=== PATIENT | female | born 1985 | race Caucasian/White ===

== ENCOUNTER 2018-06-15 22:47 | Emergency (ER) | payer SELFPAY ==
[2016-06-02 13:15] VITALS: BP 128/72
[~2018-06-15] VITALS: Ht 170.2 cm; Wt 90.7 kg
[~2018-06-15 22:47] MED LIST: ACET-704 PO; ONDA4TAB10 SL
[2018-06-15] MEDS: HYDROcodone/APAP 7.5/325MG 1 TAB TABLET PO ONE (23:24)
[2018-06-15] MEDS: IBUPROFEN 400 MG TABLET. PO ONE (23:24)
[2018-06-16] MEDS ORDERED: HYDR-971 PO (00:11)
[2018-06-16] MEDS ORDERED: IBUP-1060 PO (00:11)
--- NOTE | 2018-06-16 03:27 | PHYS DOC ---
Past Medical History Past Medical History: No Pertinent History Past Surgical History: , Other Additional Past Surgical Histo: OVARIAN CYST REMOVED X2 Alcohol Use: None Drug Use: None Adult General Chief Complaint Chief Complaint: MECHANICAL FALL HPI HPI Patient is a 33 year old female who presents with fall. Patient states she fell 2 days earlier. She describes a mechanical fall. She landed on the left elbow and left shoulder. She's been having pain since then. The pain is worse at night and does keep her up at night. She did not strike her head. No vision changes, nausea, vomiting. No additional trauma or complaints this evening. Review of Systems Review of Systems Constitutional: Denies fever or chills Respiratory: Denies cough or shortness of breath Cardiovascular: No additional information not addressed in HPI Musculoskeletal: Denies back pain Integument: Denies rash or skin lesions Neurologic: Denies headache, focal weakness All other systems were reviewed and found to be within normal limits, except as documented in this note. Current Medications Current Medications Current Medications Medications (Trade) Dose Ordered Sig/Lina Start Time Stop Time Status Last Admin Dose Admin Acetaminophen/ Hydrocodone Bitart (Lortab 7.5/325) 1 tab 1X ONCE 06/15/18 23:30 06/15/18 23:31 DC 06/15/18 23:24 1 TAB Ibuprofen (Motrin) 800 mg 1X ONCE 06/15/18 23:30 06/15/18 23:31 DC 06/15/18 23:24 800 MG Allergies Allergies Allergies Coded Allergies Type Severity Reaction Last Updated Verified amoxicillin Allergy Intermediate 01/23/15 No Physical Exam Physical Exam Constitutional: Well developed, well nourished, no acute distress, non-toxic appearance HENT: Normocephalic, atraumatic, bilateral external ears normal, oropharynx moist Eyes: PERRLA, EOMI, conjunctiva normal Neck: Normal range of motion Cardiovascular:Heart rate regular rhythm, no murmur Lungs & Thorax: Bilateral breath sounds clear to auscultation Skin: Warm, dry, no erythema, no rash Extremities: No tenderness Neurologic: Alert and oriented X 3 Psychologic: Affect normal Current Patient Data Vital Signs Vital Signs Date Time Temp Pulse Resp B/P (MAP) Pulse Ox O2 Delivery O2 Flow Rate FiO2 06/15/18 23:03 98.2 103 18 167/109 (128) 99 Room Air 98.2 EKG EKG [] Radiology/Procedures Radiology/Procedures Plain film x-ray of the left elbow and shoulder did not reveal acute bony injury. Course & Med Decision Making Course & Med Decision Making Pertinent Labs and Imaging studies reviewed. (See chart for details) Patient is seen primarily for pain control. She fell 2 days earlier. She complains of pain in the left elbow and left shoulder. She has full range of motion about the elbow without difficulty. Pain in left shoulder is mildly limited due to pain only. She is x-rayed and no acute findings are found. She is discharged home with some medications for pain control. Advised to follow-up with her primary care doctor. Dragon Disclaimer Dragon Disclaimer This electronic medical record was generated, in whole or in part, using a voice recognition dictation system. Departure Departure Impression: Primary Impression: Contusion, shoulder /upper arm Additional Impression: Contusion, elbow Disposition: HOME, SELF-CARE Condition: GOOD Patient Instructions: Contusion, [id number] Scripts Hydrocodone/Apap 5-325 (NORCO 5-325 TABLET) 1 Each Tablet 1-2 EACH PO PRN Q6HRS PRN for severe pain, #15 as needed for pain Prov: NEO WHEELER DO 06/16/18 Ibuprofen (IBUPROFEN) 800 Mg Tablet 800 MG PO PRN TID PRN for PAIN, #20 TAB take with food or milk to avoid upsetting stomach Prov: NEO WHEELER DO 06/16/18 Problem Qualifiers NEO WHEELER DO Jun 16, 2018 03:27
--- NOTE | 2018-06-16 05:29 | RAD ---
3 view left elbow AP lateral oblique HISTORY: Pain status post fall The visualized osseous structures appear normal. IMPRESSION: No acute findings End impression Three views left shoulder History: pain Internally and externally rotated AP of shoulder obtained, as well as "Y" view. The glenohumeral relationship is normal. The visualized osseous structures appear normal. Impression: No acute findings. end impression Electronically signed by: Lowell Alicia III, MD (06/16/2018 5:26 AM) [facility]
== END 2018-06-16 00:17 | disposition home or self-care (01) ==
LOC: ER 22:47
DX: S50.02XA Contusion of left elbow, initial encounter (principal); S40.012A Contusion of left shoulder, initial encounter; S40.022A Contusion of left upper arm, initial encounter; Z98.890 Other specified postprocedural states; W18.39XA Other fall on same level, initial encounter; Y93.89 Activity, other specified; Y92.89 Other specified places as the place of occurrence of the external cause; Y99.8 Other external cause status
CPT/HCPCS: 73030; 73080; 99284

== ENCOUNTER 2018-11-19 03:48 | Emergency (ER) | payer SELFPAY ==
[~2018-11-19] VITALS: Ht 167.6 cm; Wt 83.9 kg
[~2018-11-19 03:48] MED LIST changes: +HYDR-3164 PO; +IBUP-1060 PO
[2018-11-19 04:36] LABS: BILIRUBIN,URINE NEGATIVE (NEG); CLARITY,URINE CLOUDY; COLOR,URINE YELLOW; NITRITE,URINE POSITIVE (NEG); PH,URINE 7.5; PROTEIN,URINE NEGATIVE (NEG-TRACE); UROBILINOGEN,URINE 0.2 mg/dL (0.2 mg/dL)
[2018-11-19 04:42] LABS: BASO % 1 % (0-3); EOS # 0.7 x10^3/uL (0.0-0.7); EOS % 9 % (0-3); HEMATOCRIT 40.6 % (36.0-47.0); HEMOGLOBIN 13.7 g/dL (12.0-15.5); LYMPH % 25 % (24-48); MEAN CORPUSCULAR HEMOGLOBIN 30 pg (25-35); MEAN CORPUSCULAR HGB CONC 34 g/dL (31-37); MEAN CORPUSCULAR VOLUME 89 fL (79-100); MONO # 0.6 x10^3/uL (0.0-1.1); MONO % 8 % (0-9); NEUT # 4.6 x10^3uL (1.8-7.7); NEUT % 58 % (31-73); PLATELET COUNT 276 x10^3/uL (140-400); RED BLOOD COUNT 4.59 x10^6/uL (3.50-5.40); RED CELL DISTRIBUTION WIDTH 15.1 % (11.5-14.5); WHITE BLOOD COUNT 8.1 x10^3/uL (4.0-11.0)
[2018-11-19 04:46] LABS: CALCIUM 8.7 mg/dL (8.5-10.1); CREATININE 0.7 mg/dL (0.6-1.0); GFR 95.8; POTASSIUM 3.8 mmol/L (3.5-5.1)
[2018-11-19 04:48] LABS: RBC,URINE 0 /HPF (0-2)
[2018-11-19 04:49] LABS: BACTERIA,URINE MANY /HPF (0-FEW); SQUAMOUS EPITHELIAL CELL,UR MANY /LPF
[2018-11-19 04:52] LABS: ALBUMIN 3.3 g/dL (3.4-5.0); ALBUMIN/GLOBULIN RATIO 0.8 (1.0-1.7); TOTAL BILIRUBIN 0.3 mg/dL (0.2-1.0); TOTAL PROTEIN 7.7 g/dL (6.4-8.2)
--- NOTE | 2018-11-19 05:14 | RAD ---
PORTABLE CHEST 1V Clinical History: dyspnea Technique: AP view of the chest was obtained at 11/19/2018 4:14 AM. Comparison: None. Findings: The cardiomediastinal silhouette is normal. The pulmonary vasculature is normal. The lungs and pleural margins are clear. Impression: No evidence of an acute cardiopulmonary process. Electronically signed by: Lowell Alicia III, MD (11/19/2018 5:11 AM) [facility]
[2018-11-19] MEDS ORDERED: FURO-69 PO (05:34)
--- NOTE | 2018-11-19 05:35 | PHYS DOC ---
Past Medical History Past Medical History: No Pertinent History Past Surgical History: , Other Additional Past Surgical Histo: OVARIAN CYST REMOVED X2 Alcohol Use: None Drug Use: None Adult General Chief Complaint Chief Complaint: LOWER EXTREMITY EDEMA HPI HPI Patient is a 33-year-old female who presents with complaint of lower extremity swelling as well as some cough and shortness of breath. Patient states that symptoms have been present for the last few weeks and progressively worsening. Patient states that she is concerned about the swelling. She denies any chest pain. She states that she was thinking that the swelling in her legs was developing because of being on her feet a lot but is not sure. Review of Systems Review of Systems Constitutional: Denies fever or chills [] Respiratory: Complains of cough and shortness of breath [] Cardiovascular: No additional information not addressed in HPI [] GI: Denies abdominal pain, nausea, vomiting, bloody stools or diarrhea [] Musculoskeletal: Complains of lower extremity swelling and pain [] All other systems were reviewed and found to be within normal limits, except as documented in this note. Allergies Allergies Allergies Coded Allergies Type Severity Reaction Last Updated Verified amoxicillin Allergy Intermediate 01/23/15 No Physical Exam Physical Exam Constitutional: Well developed, well nourished, no acute distress, non-toxic appearance. [] HENT: Normocephalic, atraumatic, bilateral external ears normal, oropharynx moist, no oral exudates, nose normal. [] Eyes: PERRLA, EOMI, conjunctiva normal, no discharge. [] Neck: Normal range of motion, no tenderness, supple, no stridor. [] Cardiovascular:Heart rate regular rhythm, no murmur [] Lungs & Thorax: Bilateral breath sounds clear to auscultation [] Abdomen: Bowel sounds normal, soft, no tenderness, no masses, no pulsatile masses. [] Skin: Warm, dry, no erythema, no rash. [] Extremities: No tenderness, no cyanosis, no clubbing, ROM intact, with mild pitting edema. [] Neurologic: Alert and oriented X 3, no focal deficits noted. [] Current Patient Data Vital Signs Vital Signs Date Time Temp Pulse Resp B/P (MAP) Pulse Ox O2 Delivery O2 Flow Rate FiO2 11/19/18 05:57 103 153/97 (115) Room Air 11/19/18 05:27 98 11/19/18 03:50 98.3 17 98.3 Lab Values Laboratory Tests Test 11/19/18 04:05 11/19/18 04:07 11/19/18 04:15 Urine Collection Type Unknown Urine Color Yellow Urine Clarity Cloudy Urine pH 7.5 Urine Specific [place] 1.020 Urine Protein Negative mg/dL (NEG-TRACE) Urine Glucose (UA) Negative mg/dL (NEG) Urine Ketones (Stick) Negative mg/dL (NEG) Urine Blood Negative (NEG) Urine Nitrite Positive (NEG) Urine Bilirubin Negative (NEG) Urine Urobilinogen Dipstick 0.2 mg/dL (0.2 mg/dL) Urine Leukocyte Esterase Moderate (NEG) Urine RBC 0 /HPF (0-2) Urine WBC 11-20 /HPF (0-4) Urine Squamous Epithelial Cells Many /LPF Urine Bacteria Many /HPF (0-FEW) Urine Mucus Mod /LPF POC Urine HCG, Qualitative Hcg negative (Negative) White Blood Count 8.1 x10^3/uL (4.0-11.0) Red Blood Count 4.59 x10^6/uL (3.50-5.40) Hemoglobin 13.7 g/dL (12.0-15.5) Hematocrit 40.6 % (36.0-47.0) Mean Corpuscular Volume 89 fL (79-100) Mean Corpuscular Hemoglobin 30 pg (25-35) Mean Corpuscular Hemoglobin Concent 34 g/dL (31-37) Red Cell Distribution Width 15.1 % (11.5-14.5) H Platelet Count 276 x10^3/uL (140-400) Neutrophils (%) (Auto) 58 % (31-73) Lymphocytes (%) (Auto) 25 % (24-48) Monocytes (%) (Auto) 8 % (0-9) Eosinophils (%) (Auto) 9 % (0-3) H Basophils (%) (Auto) 1 % (0-3) Neutrophils # (Auto) 4.6 x10^3uL (1.8-7.7) Lymphocytes # (Auto) 2.0 x10^3/uL (1.0-4.8) Monocytes # (Auto) 0.6 x10^3/uL (0.0-1.1) Eosinophils # (Auto) 0.7 x10^3/uL (0.0-0.7) Basophils # (Auto) 0.0 x10^3/uL (0.0-0.2) D-Dimer (Trish) 0.37 ug/mlFEU (0.00-0.50) Sodium Level 140 mmol/L (136-145) Potassium Level 3.8 mmol/L (3.5-5.1) Chloride Level 104 mmol/L (98-107) Carbon Dioxide Level 26 mmol/L (21-32) Anion Gap 10 (6-14) Blood Urea Nitrogen 13 mg/dL (7-20) Creatinine 0.7 mg/dL (0.6-1.0) Estimated GFR (Cockcroft-Gault) 95.8 BUN/Creatinine Ratio 19 (6-20) Glucose Level 99 mg/dL (70-99) Calcium Level 8.7 mg/dL (8.5-10.1) Total Bilirubin 0.3 mg/dL (0.2-1.0) Aspartate Amino Transferase (AST) 14 U/L (15-37) L Alanine Aminotransferase (ALT) 15 U/L (14-59) Alkaline Phosphatase 117 U/L (46-116) H Troponin I Quantitative < 0.017 ng/mL (0.000-0.055) FV-Vqs-D-Type Natriuretic Peptide 41 pg/mL (0-124) Total Protein 7.7 g/dL (6.4-8.2) Albumin 3.3 g/dL (3.4-5.0) L Albumin/Globulin Ratio 0.8 (1.0-1.7) L Laboratory Tests 11/19/18 04:15 Laboratory Tests 11/19/18 04:15 EKG EKG [] Radiology/Procedures Radiology/Procedures [] Impressions: PORTABLE CHEST 1V Clinical History: dyspnea Technique: AP view of the chest was obtained at 11/19/2018 4:14 AM. Comparison: None. Findings: The cardiomediastinal silhouette is normal. The pulmonary vasculature is normal. The lungs and pleural margins are clear. Impression: No evidence of an acute cardiopulmonary process. Electronically signed by: Lowell Alicia III, MD (11/19/2018 5:11 AM) [facility] Course & Med Decision Making Course & Med Decision Making Pertinent Labs and Imaging studies reviewed. (See chart for details) [] Dragon Disclaimer Dragon Disclaimer This electronic medical record was generated, in whole or in part, using a voice recognition dictation system. Departure Departure Impression: Primary Impression: Lower leg edema Additional Impressions: Elevated blood pressure reading without diagnosis of hypertension UTI (urinary tract infection) Disposition: 01 HOME, SELF-CARE Condition: STABLE Referrals: NO PCP (PCP) Patient Instructions: Edema, Hypertension Additional Instructions: Establish care with a primary care provider in the next week. Scripts Sulfamethoxazole/Trimethoprim (BACTRIM DS TABLET) 1 Each Tablet 1 TAB PO BID, #14 TAB Prov: LLOYD LARKIN Jr. DO 11/19/18 Furosemide (LASIX) 20 Mg Tablet 1 TAB PO DAILY, #10 TAB Prov: LLOYD LARKIN Jr. DO 11/19/18 Problem Qualifiers Additional Impressions: UTI (urinary tract infection) Urinary tract infection type: site unspecified Hematuria presence: without hematuria Qualified Codes: N39.0 - Urinary tract infection, site not specified LLOYD LARKIN Jr. DO Nov 19, 2018 05:35
[2018-11-19] MEDS ORDERED: SULF1TAB24 PO (05:55)
[2018-11-19 05:57] VITALS: BP 153/97
--- NOTE | 2018-11-19 11:06 | EKG ---
[facility] [address] [place] [address] Test Date: 2018-11-19 Test Time: 04:39:40 Pat Name: HEATHER STUART Department: Room: Gender: [employer]: : 1985 Requested By: Order Number: [id number] Reading MD: Jb Camara MD Measurements Intervals [place] Rate: 95 P: 44 [place]: 164 QRS: 78 QRSD: 86 T: 35 QT: 344 QTc: 435 Interpretive Statements SINUS RHYTHM Electronically Signed On 11-22-2018 15:14:08 CDT by Jb Camara MD
== END 2018-11-19 06:20 | disposition home or self-care (01) ==
LOC: ER 03:48
DX: N39.0 Urinary tract infection, site not specified (principal); R60.0 Localized edema; R03.0 Elevated blood-pressure reading, without diagnosis of hypertension; M79.89 Other specified soft tissue disorders; Z98.890 Other specified postprocedural states; Z88.1 Allergy status to other antibiotic agents
CPT/HCPCS: 36415; 71045; 80053; 81001; 81025; 83880; 84484; 85025; 85379; 87086; 87186; 93005; 99284-25

== ENCOUNTER 2019-06-02 17:05 | Emergency (ER) | payer SELFPAY ==
[~2019-06-02] VITALS: Ht 167.6 cm; Wt 102.1 kg
[~2019-06-02 17:05] MED LIST changes: +FURO-69 PO; +SULF1TAB24 PO
[2019-06-02 17:26] VITALS: BP 154/81
[2019-06-02 17:45] LABS: BILIRUBIN,URINE NEGATIVE (NEG); CLARITY,URINE CLOUDY; COLOR,URINE YELLOW; NITRITE,URINE POSITIVE (NEG); PH,URINE 5.5; PROTEIN,URINE 100 mg/dL (NEG-TRACE); UROBILINOGEN,URINE 0.2 mg/dL (0.2 mg/dL)
[2019-06-02 17:52] LABS: BACTERIA,URINE MANY /HPF (0-FEW); RBC,URINE 0 /HPF (0-2); SQUAMOUS EPITHELIAL CELL,UR MANY /LPF
[2019-06-02] MEDS ORDERED: KETOROLAC 30 MG/ML VIAL. IM STA (18:04)
--- NOTE | 2019-06-02 18:07 | PHYS DOC ---
Past Medical History Past Medical History: No Pertinent History (JAISON RODRIGUEZ APRN) Past Surgical History: , Other Additional Past Surgical Histo: OVARIAN CYST REMOVED X2 (JAISON RODRIGUEZ APRN) Alcohol Use: None Drug Use: None (JAISON RODRIGUEZ APRN) Attending Signature I have participated in the care of this patient and I have reviewed and agree with all pertinent clinical information above including history, exam, and recommendations. (KATH RANGEL MD) Adult General Chief Complaint Chief Complaint: ABDOMINAL PAIN HPI HPI Patient is a 34 year old female that presents to the ER for pelvic pain is on going for several hours. She rates her pain as 10 out of 10 in severity and states the pain is intermittent in nature. The patient however is not taking medicine before arrival. (JAISON RODRIGUEZ APRN) Review of Systems Review of Systems Constitutional: Denies fever or chills [] Eyes: Denies change in visual acuity, redness, or eye pain [] HENT: Denies nasal congestion or sore throat [] Respiratory: Denies cough or shortness of breath [] Cardiovascular: No additional information not addressed in HPI [] GI: Reports lower abdominal pain, Denies nausea, vomiting, bloody stools or diarrhea [] : Denies dysuria or hematuria [] Musculoskeletal: Denies back pain or joint pain [] Integument: Denies rash or skin lesions [] Neurologic: Denies headache, focal weakness or sensory changes [] Endocrine: Denies polyuria or polydipsia [] Complete systems were reviewed and found to be within normal limits, except as documented in this note. (JAISON RODRIGUEZ APRN) Current Medications Current Medications Current Medications Medications (Trade) Dose Ordered Sig/Lina Start Time Stop Time Status Last Admin Dose Admin Ketorolac Tromethamine (Toradol 30mg Vial) 30 mg 1X STAT 06/02/19 18:04 06/02/19 18:09 DC 06/02/19 18:29 30 MG (KATH RANGEL MD) Allergies Allergies Allergies Coded Allergies Type Severity Reaction Last Updated Verified amoxicillin Allergy Intermediate 01/23/15 No (KATH RANGEL MD) Physical Exam Physical Exam Constitutional: Well developed, well nourished, no acute distress, non-toxic appearance. [] HENT: Normocephalic, atraumatic, bilateral external ears normal, oropharynx moist, no oral exudates, nose normal. [] Eyes: PERRLA, EOMI, conjunctiva normal, no discharge. [] Neck: Normal range of motion, no tenderness, supple, no stridor. [] Cardiovascular:Heart rate regular rhythm, no murmur [] Lungs & Thorax: Bilateral breath sounds clear to auscultation [] Abdomen: Bowel sounds normal, soft, lower abdominal tenderness, no masses, no pulsatile masses. [] Skin: Warm, dry, no erythema, no rash. [] Back: No tenderness, no CVA tenderness. [] Extremities: No tenderness, no cyanosis, no clubbing, ROM intact, no edema. [] Neurologic: Alert and oriented X 3, normal motor function, normal sensory function, no focal deficits noted. [] Psychologic: Affect normal, judgement normal, mood normal. [] (JAISON RODRIGUEZ APRN) Current Patient Data Vital Signs Vital Signs Date Time Temp Pulse Resp B/P (MAP) Pulse Ox O2 Delivery O2 Flow Rate FiO2 06/02/19 17:26 97.9 107 18 154/81 (105) 100 Room Air 97.9 (KATH RANGEL MD) Lab Values Laboratory Tests Test 06/02/19 17:31 06/02/19 17:38 Urine Collection Type Unknown Urine Color Yellow Urine Clarity Cloudy Urine pH 5.5 Urine Specific [place] 1.025 Urine Protein 100 mg/dL (NEG-TRACE) Urine Glucose (UA) Negative mg/dL (NEG) Urine Ketones (Stick) 15 mg/dL (NEG) Urine Blood Negative (NEG) Urine Nitrite Positive (NEG) Urine Bilirubin Negative (NEG) Urine Urobilinogen Dipstick 0.2 mg/dL (0.2 mg/dL) Urine Leukocyte Esterase Small (NEG) Urine RBC 0 /HPF (0-2) Urine WBC 11-20 /HPF (0-4) Urine Squamous Epithelial Cells Many /LPF Urine Bacteria Many /HPF (0-FEW) POC Urine HCG, Qualitative Hcg negative (Negative) (KATH RANGEL MD) EKG EKG [] (JAISON RODRIGUEZ APRN) Radiology/Procedures Radiology/Procedures [][facility] [address] [place] [address] IMAGING REPORT Signed PATIENT: HEATHER STUART: [id number] : 1985 LOCATION: ER AGE: 34 SEX: F EXAM STATUS: REG ER ORD. PHYSICIAN: JAISON RODRIGUEZ APRN REASON: pelvic pain PROCEDURE: PELVIS ULTRASOUND Complete pelvic ultrasound HISTORY: 34-year-old female with pelvic pain. TECHNIQUE: Transabdominal transducer with grayscale and duplex Doppler sonography was utilized FINDINGS: Anteverted appearing uterus measures 10.2 x 4.4 x 7.0 cm. Limited visualization of the lower uterine segment and cervix due to shadowing given that the patient's bladder was poorly distended for the exam. No uterine mass or endometrial mass or hypervascularity documented. Endometrium thickness normal measuring 0.7 cm. Right ovary measures 4.1 x 1.3 x 2.3 cm with a small 1.5 cm follicle. Left ovary measures 4.0 x 2.2 x 2.7 cm. There is intact bilateral ovarian blood flow. No pelvic fluid. IMPRESSION: Normal exam. Electronically signed by: Yobani Riley MD (06/02/2019 6:54 PM) [facility] DICTATED and SIGNED BY: YOBANI RILEY MD DATE: 06/02/191853 (JAISON RODRIGUEZ APRN) Course & Med Decision Making Course & Med Decision Making Pertinent Labs and Imaging studies reviewed. (See chart for details) Will get UA/Urine Preg, and Ultrasound. Will give pain medication. Ultrasound is unremarkable. UA shows nitrate and leukocytes. Will d/c home on Keflex. (JAISON RODRIGUEZ APRN) Dragon Disclaimer Dragon Disclaimer This electronic medical record was generated, in whole or in part, using a voice recognition dictation system. (JAISON RODRIGUEZ APRN) Departure Departure Impression: Primary Impression: Urinary tract infection Disposition: HOME, SELF-CARE Condition: STABLE Referrals: NO PCP (PCP) Patient Instructions: Urinary Tract Infection Additional Instructions: Thank you for visiting [facility]. We appreciate you trusting us with your care. If any additional problems come up don't hesitate to return to visit us. Please follow up with your primary care provider so they can plan additional care if needed and know about the problem that you had. If symptoms worsen come back to the Emergency Department. Any concerning symptoms that start such as chest pain, shortness of air, weakness or numbness on one side of the body, running high fevers or any other concerning symptoms return to the ER. You have been prescribed an antibiotic today to help fight your infection. Please take all of the antibiotic as directed. If after 48 hours the infection is not improving, please return for more care. If the infection worsens, return to ER for additional care. Scripts Cephalexin (KEFLEX) 500 Mg Capsule 1 CAP PO BID for 7 Days, #14 CAP 0 Refills Prov: JAISON RODRIGUEZ APRN 06/02/19 Problem Qualifiers Primary Impression: Urinary tract infection Urinary tract infection type: acute cystitis Hematuria presence: without hematuria Qualified Codes: N30.00 - Acute cystitis without hematuria JAISON RODRIGUEZ APRN Jun 02, 2019 18:07 KATH RANGEL MD Jun 03, 2019 02:39
--- NOTE | 2019-06-02 18:57 | RAD ---
Complete pelvic ultrasound HISTORY: 34-year-old female with pelvic pain. TECHNIQUE: Transabdominal transducer with grayscale and duplex Doppler sonography was utilized FINDINGS: Anteverted appearing uterus measures 10.2 x 4.4 x 7.0 cm. Limited visualization of the lower uterine segment and cervix due to shadowing given that the patient's bladder was poorly distended for the exam. No uterine mass or endometrial mass or hypervascularity documented. Endometrium thickness normal measuring 0.7 cm. Right ovary measures 4.1 x 1.3 x 2.3 cm with a small 1.5 cm follicle. Left ovary measures 4.0 x 2.2 x 2.7 cm. There is intact bilateral ovarian blood flow. No pelvic fluid. IMPRESSION: Normal exam. Electronically signed by: Bari Riley MD (06/02/2019 6:54 PM) [facility]
[2019-06-02] MEDS ORDERED: CEPH-264 PO (19:10)
== END 2019-06-02 19:21 | disposition home or self-care (01) ==
LOC: ER 17:05
DX: N30.00 Acute cystitis without hematuria (principal); Z98.890 Other specified postprocedural states; Z88.1 Allergy status to other antibiotic agents
CPT/HCPCS: 76856; 81001; 81025; 87086; 96372; 99285; J1885

== ENCOUNTER 2021-11-28 20:42 | Emergency (ER) | payer SELFPAY ==
[~2021-11-28] VITALS: Ht 167.6 cm; Wt 90.9 kg
[~2021-11-28 20:42] MED LIST changes: +CEPH-264 PO
--- NOTE | 2021-11-28 22:24 | PHYS DOC ---
Past Medical History Past Medical History: No Pertinent History Past Surgical History: , Other Additional Past Surgical Histo: OVARIAN CYST REMOVAL Smoking Status: Current Every Day Smoker Alcohol Use: None Drug Use: None General Adult EDM: Chief Complaint: LACERATION/AVULSION HPI: HPI: Patient is a 36 year old female who presents with laceration to the left hand between digits 2 and 3. Patient states she was opening up the container for an eyebrow blade. The sharp blade caught her between digits 2 and 3. She noticed significant bleeding and immediately had her family members take her to the ER. Bleeding was controlled at time of arrival. Patient's tetanus vaccine was updated 6-7 years ago when she had surgery. Patient has no other complaints at this time. Review of Systems: Review of Systems: ROS negative or noncontributory except as mentioned in HPI. Heart Score: C/O Chest Pain: No Allergies: Allergies: Allergies Coded Allergies Type Severity Reaction Last Updated Verified amoxicillin Allergy Intermediate 11/28/21 Yes Physical Exam: PE: Constitutional: Well developed, well nourished, no acute distress, non-toxic appearance. HENT: Normocephalic, atraumatic, bilateral external ears normal, nose normal. Eyes: EOMI, conjunctiva normal, no discharge. Neck: Normal range of motion, no stridor. Skin: Less than 1 cm laceration noted to the webspace between digits 2 and 3 on the left hand. Skin otherwise warm, dry, no erythema, no rash. Extremities: No cyanosis, no clubbing, ROM intact, no edema. Neurologic: Alert and oriented x4, normal motor function, normal sensory function, no focal deficits noted. Current Patient Data: Vital Signs: Vital Signs Date Time Temp Pulse Resp B/P (MAP) Pulse Ox O2 Delivery O2 Flow Rate FiO2 11/28/21 22:46 156/86 (109) 11/28/21 20:52 97.4 91 18 171/109 (129) 100 Room Air 97.4 Course & Med Decision Making: Course & Med Decision Making Pertinent Labs and Imaging studies reviewed. (See chart for details) Patient is a 36-year-old female who presented with a laceration to the webspace between digits 2 and 3 on the left hand. She just found out about 1 week ago that she is . Last tetanus vaccine was greater than 5 years ago. Tetanus vaccination will be updated today. See below for laceration repair. Wound care instruction and return precautions provided. Patient understands and is agreeable to discharge plan. Dragon Disclaimer: Dragon Disclaimer: This chart was dictated in whole or in part using Voice Recognition software in a busy, high-work load, and often noisy Emergency Department environment. It may contain unintended and wholly unrecognized errors or omissions. Laceration Repair Lac Repair Indication: Hand laceration Procedure: The patient was placed in the appropriate position and anesthesia around the laceration was not necessary. The area was then irrigated with steri le saline and cleansed with chlorhexidine. The laceration was closed with Dermabond. Total repaired wound length: 8 mm Other Items: The patient tolerated the procedure very well. Complications: No complications. Departure Departure Impression: Primary Impression: Laceration of left hand without complication, excluding fingers Qualified Codes: S61.412A - Laceration without foreign body of left hand, initial encounter Disposition: HOME / SELF CARE / HOMELESS Condition: IMPROVED Referrals: NO PCP (PCP) Patient Instructions: Tissue Adhesive Wound Care, [id number] Additional Instructions: EMERGENCY DEPARTMENT GENERAL DISCHARGE INSTRUCTIONS Thank you for coming to [facility] Emergency Department (ED) today and trusting us with you care. We trust that you had a positive experience in our Emergency Department. If you wish to speak to the department management, you may call the director at . YOUR FOLLOW UP INSTRUCTIONS ARE FOLLOWS: 1. Follow up with your primary care doctor. If you do not have a primary doctor, please ask for a resource list of physicians or clinics that may be able to assist you with follow up care. 2. The emergency provider has interpreted your imaging studies, if any were ordered. The radiology application security specialist also reviewed them. If there is a ch jeremiah in the findings, you will be notified in 48 hours when at all possible. 3. If a lab test or culture has been done, your results will be reviewed and you will be notified if you need a change in treatment. 4. Follow instructions verbalized to you and refer to the printouts if needed. ADDITIONAL INSTRUCTIONS AND INFORMATION: 1. Your care today has been supervised by a physician who is specially trained in emergency care. Many problems require more than one evaluation for a complete diagnosis and treatment. We recommend that you schedule your follow up appointment as recommended to ensure complete treatment of you illness or injury. If you are unable to obtain follow up care and continue to have a problem, or if your condition worsens, we recommend that you return to the ED. 2. We are not able to safely determine your condition over the phone nor are we able to give sound medical advice over the phone. For these safety reasons, if you call for medical advice we will ask you to come to the ED for further evaluation. 3. If you have any questions regarding these discharge instructions please call the ED at . SAFETY INFORMATION: In the interest of safety, wellness, and injury prevention; we encourage you to wear your seat belt, if you smoke; quite smoking, and we encourage family to use a protective helmet for bicycling and other sporting events that present an i ncreased risk for head injury. IF YOUR SYMPTOMS WORSEN OR NEW SYMPTOMS DEVELOP, OR YOU HAVE CONCERNS ABOUT YOUR CONDITION; OR IF YOUR CONDITION WORSENS WHILE YOU ARE WAITING FOR YOUR FOLLOW UP APPOINTMENT; EITHER CONTACT YOUR PRIMARY CARE DOCTOR, THE PHYSICIAN WHOSE NAME AND NUMBER YOU WERE GIVEN, OR RETURN TO THE ED IMMEDIATELY. NANNETTE RAGLAND Nov 28, 2021 22:24
[2021-11-28] MEDS ORDERED: DIPHTH,PERTUSS(ACELL),TET TOX 0.5 ML DISP.SYRIN. VAX IM ONE (22:30)
[2021-11-28 22:46] VITALS: BP 156/86
== END 2021-11-28 22:50 | disposition home or self-care (01) ==
LOC: ER 20:42
DX: S61.412A Laceration without foreign body of left hand, initial encounter (principal); F17.200 Nicotine dependence, unspecified, uncomplicated; Z88.1 Allergy status to other antibiotic agents; W23.0XXA Caught, crushed, jammed, or pinched between moving objects, initial encounter; Y93.89 Activity, other specified; Y92.89 Other specified places as the place of occurrence of the external cause; Y99.8 Other external cause status
CPT/HCPCS: 12001; 90471; 90715; 99283-25

== ENCOUNTER 2022-01-01 06:16 | Emergency (ER) | payer MEDICAID ==
[~2022-01-01] VITALS: Ht 167.6 cm; Wt 106.6 kg
--- NOTE | 2022-01-01 07:53 | PHYS DOC ---
Past Medical History Past Medical History: No Pertinent History Past Surgical History: No Surgical History, , Other Additional Past Surgical Histo: OVARIAN CYST REMOVAL Smoking Status: Current Every Day Smoker Alcohol Use: None Drug Use: None General Adult EDM: Chief Complaint: ABDOMINAL PAIN IN HPI: HPI: 36-year-old female, , 9 weeks , followed by OB at , presents with 3 hours of crampy lower pelvic pain. No vaginal bleeding. Otherwise was in her usual state of health prior. No fever, chills, nausea, vomiting, chest pain, shortness of breath, palpitations. No leg swelling. Review of Systems: Review of Systems: Constitutional: Denies fever or chills. [] Eyes: Denies change in visual acuity. [] HENT: Denies nasal congestion or sore throat. [] Respiratory: Denies cough or shortness of breath. [] Cardiovascular: Denies chest pain or edema. [] GI: Denies abdominal pain, nausea, vomiting, bloody stools or diarrhea. [] : Denies dysuria. [] Musculoskeletal: Denies back pain or joint pain. [] Integument: Denies rash. [] Neurologic: Denies headache, focal weakness or sensory changes. [] Endocrine: Denies polyuria or polydipsia. [] Lymphatic: Denies swollen glands. [] Psychiatric: Denies depression or anxiety. [] Heart Score: C/O Chest Pain: No Risk Factors: Risk Factors: DM, Current or recent (<one month) smoker, HTN, HLP, family history of CAD, obesity. Risk Scores: Score 0 - 3: 2.5% MACE over next 6 weeks - Discharge Home Score 4 - 6: 20.3% MACE over next 6 weeks - Admit for Clinical Observation Score 7 - 10: 72.7% MACE over next 6 weeks - Early Invasive Strategies Allergies: Allergies: Allergies Coded Allergies Type Severity Reaction Last Updated Verified amoxicillin Allergy Intermediate 11/28/21 Yes Physical Exam: PE: Constitutional: Well developed, well nourished, no acute distress, non-toxic appearance. [] HENT: Normocephalic, atraumatic, bilateral external ears normal, oropharynx moist, no oral exudates, nose normal. [] Eyes: PERRLA, EOMI, conjunctiva normal, no discharge. [] Neck: Normal range of motion, no tenderness, supple, no stridor. [] Cardiovascular:Heart rate regular rhythm, no murmur [] Lungs & Thorax: Bilateral breath sounds clear to auscultation [] Abdomen: Bowel sounds normal, soft, no tenderness, no masses, no pulsatile mas ses. [] Skin: Warm, dry, no erythema, no rash. [] Back: No tenderness, no CVA tenderness. [] Extremities: No tenderness, no cyanosis, no clubbing, ROM intact, no edema. [] Neurologic: Alert and oriented X 3, normal motor function, normal sensory function, no focal deficits noted. [] Psychologic: Affect normal, judgement normal, mood normal. [] Current Patient Data: Vital Signs: Vital Signs Date Time Temp Pulse Resp B/P (MAP) Pulse Ox O2 Delivery O2 Flow Rate FiO2 01/01/22 07:08 98.7 92 16 137/77 (97) 99 Room Air 98.7 EKG: EKG: [] Radiology/Procedures: Radiology/Procedures: [] Course & Med Decision Making: Course & Med Decision Making Pertinent Labs and Imaging studies reviewed. (See chart for details) Additional Social History: PMD from non-affiliated facility. Patient Lives at home. Family History: Non-pertinent to today's complaint. Nursing Notes Reviewed Previous Medical Records requested via [facility] Web: Reviewed by me. EMERGENT LABS AND DIAGNOSTIC STUDIES: Results were reviewed and interpreted by me as below REASON: 9 week , pelvic cramping PROCEDURE: OB < 14 WKS Impression: 1. No evidence of acute pelvic pathology. 2. Single live intrauterine gestation with crown-rump length corresponding to a gestational age of 8 weeks 5 days. EMERGENCY DEPARTMENT COURSE/ MEDICAL DECISION MAKING: The patient was placed on a automobile engine assembler, continuous pulse oximetry and was given supplemental oxygen. I examined the patient, evaluated and addressed patient's chief complaint. Found to have UTI. Will presscribe cefpodoxime. Normal 8week 5 day seen on pelvic ultrasound. Otheriwse labs and vitals wnl. Exam benign. Well ap pearing. On re-assessment, patient feels much better. The patient understands that todays Emergency Department evaluation does not represent a comprehensive medical workup, and it is impossible to diagnose all possible illnesses from a single Emergency Department visit. The patient verbalized understanding that it is absolutely necessary to have follow-up with regular primary care physician within 1-2 days for more detailed workup and continued exam. I explained the findings and plan to the patient, who expressed verbal understanding and agreed with plan for discharge and follow up. The patient was given after care instructions and welcomed to return to the ED for re-evaluation in 8-12 hours, especially for any new or worsening symptoms. Patient's blood pressure was elevated (>120/80) but appears stable without evidence of end organ damage, malignant hypertension, hypertensive emergency or urgency. The patient was counseled about the risks of hypertension and urged to pursue outpatient monitoring and therapy within a week with their primary care physician. The patient was stable at the time of discharge. DIAGNOSTIC IMPRESSION: 1. UTI 2. First trimester DISPOSITION: Disposition: Discharge Home. Condition: Improved Follow-Up: PMD Prescriptions: cefpodoxime Return to the Emergency Department for new or worsening symptoms. Kaelyn Disclaimer: Kaelyn Disclaimer: This electronic medical record was generated, in whole or in part, using a voice recognition dictation system. Departure Departure Impression: Primary Impression: UTI (urinary tract infection) Additional Impressions: First trimester Normal intrauterine on ultrasound Disposition: HOME / SELF CARE / HOMELESS Condition: STABLE Referrals: NO PCP (PCP) Scripts Cefpodoxime Proxetil (CEFPODOXIME PROXETIL) 200 Mg Tablet 1 TAB PO BID for 10 Days, #20 TAB Prov: CLINT DUFFY MD 01/01/22 CLINT DUFFY MD January 01, 2022 07:53
[2022-01-01] MEDS ORDERED: ACETAMINOPHEN 325 MG TABLET. PO ONE (08:00)
--- NOTE | 2022-01-01 09:09 | RAD ---
US OB <14 WKS +TV History: 9 week , pelvic cramping. Comparison: None. Technique: Sonographic examination of the pelvis was performed with transabdominal and transvaginal t echnique. Findings: The uterus is early gravid, measuring 14.0 x 7.1 x 9.0 cm. The uterus contains a single gestational sac with normal shape. A pole is identified with crown -rump length measuring 2.10 cm, corresponding to a gestational age of 8 weeks 5 days. There is no evidence of perigestational hemorrhage. There is heart activity measuring approximately 180 bpm. The ovaries are not identified with transabdominal or transvaginal technique due to obscuring bowel g as. There is no evidence of adnexal mass or free fluid. Impression: 1. No evidence of acute pelvic pathology. 2. Single live intrauterine gestation with crown-rump length corresponding to a gestational age of 8 weeks 5 days. Electronically signed by: Carlos Collins MD (01/01/2022 9:06 AM) [id number]
[2022-01-01 09:22] LABS: BACTERIA,URINE MODERATE /HPF (0-FEW); RBC,URINE 0 /HPF (0-2)
[2022-01-01 10:56] LABS: BASO # 0.1 x10^3/uL (0.0-0.2); BASO % 1 % (0-3); EOS # 0.4 x10^3/uL (0.0-0.7); EOS % 4 % (0-3); HEMATOCRIT 38.5 % (36.0-47.0); HEMOGLOBIN 12.8 g/dL (12.0-15.5); LYMPH # 2.3 x10^3/uL (1.0-4.8); LYMPH % 20 % (24-48); MEAN CORPUSCULAR HEMOGLOBIN 28 pg (25-35); MEAN CORPUSCULAR HGB CONC 33 g/dL (31-37); MEAN CORPUSCULAR VOLUME 84 fL (79-100); MONO % 8 % (0-9); NEUT # 7.8 x10^3/uL (1.8-7.7); NEUT % 68 % (31-73); PLATELET COUNT 284 x10^3/uL (140-400); RED BLOOD COUNT 4.56 x10^6/uL (3.50-5.40); RED CELL DISTRIBUTION WIDTH 15.2 % (11.5-14.5); WHITE BLOOD COUNT 11.5 x10^3/uL (4.0-11.0)
[2022-01-01 10:59] LABS: CALCIUM 8.6 mg/dL (8.5-10.1); CREATININE 0.9 mg/dL (0.6-1.0); GFR 70.5; POTASSIUM 3.4 mmol/L (3.5-5.1)
[2022-01-01 11:05] LABS: ALBUMIN 2.9 g/dL (3.4-5.0); ALBUMIN/GLOBULIN RATIO 0.7 (1.0-1.7); DIRECT BILIRUBIN 0.1 mg/dL (0.0-0.2); MAGNESIUM 1.8 mg/dL (1.8-2.4); TOTAL BILIRUBIN 0.3 mg/dL (0.2-1.0); TOTAL PROTEIN 7.2 g/dL (6.4-8.2)
[2022-01-01] MEDS ORDERED: cefTRIAXone IV Push 1 GM VIAL. IVP ONE (11:30)
[2022-01-01] MEDS ORDERED: CEFP200T PO (12:08)
[2022-01-01 12:19] VITALS: BP 134/78
== END 2022-01-01 12:23 | disposition home or self-care (01) ==
LOC: ER 06:16
DX: O23.41 Unspecified infection of urinary tract in pregnancy, first trimester (principal); N39.0 Urinary tract infection, site not specified; O99.331 Smoking (tobacco) complicating pregnancy, first trimester; Z3A.09 9 weeks gestation of pregnancy; Z88.1 Allergy status to other antibiotic agents
CPT/HCPCS: 36415; 76801; 80053; 80076; 81001; 83735; 84702; 85025; 86850; 86900; 86901; 87077; 87086; 87186; 99285